=== PATIENT | male | born 1980 | race Caucasian/White ===

== ENCOUNTER 2020-02-22 02:59 | Emergency (ER) | payer SELFPAY ==
[2020-02-22 03:06] VITALS: TEMP 98.6; BMI 29.7
--- NOTE | 2020-02-22 03:07 | PDOC ---
History of Present Illness - General Chief Complaint: Chest Pain Stated Complaint: CHEST PAIN AND BACK PAIN Time Seen by Provider: 02/22/20 03:06 - History of Present Illness Initial Comments: 02/22/20 03:39 This 39-year-old man, previously healthy except for kidney stones, primarily [place]mese-speaking with interpretation by hospital staff presents with several day history of intermittent chest pressure radiating to right or left upper back (periscapular area). Patient describes awakening over the last few days with shortness of breath that was mild and self-limited. Over the last 1 to 2 days, he has had increasing discomfort (substernal chest pressure) which has been worsened with drinking water and improved by drinking chamomile tea. There has been no nausea/vomiting or abdominal discomfort. No fever or chills he denies constipation or diarrhea. No increase in pain with deep breathing, movement or change in position. No previous history of this type of pain. 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 No daily medications No known allergies Denies smoking/daily alcohol or other recreational drug use Past History - Medical History Allergies/Adverse Reactions: Allergies Allergy/AdvReac Type Severity Reaction Status Date / Time No Known Allergies Allergy Verified 02/22/20 03:04 - Psycho-Social/Smoking History Smoking History: Never smoked Have you smoked in the past 12 months: No Information on smoking cessation initiated: No - Substance Abuse Hx (Audit-C & DAST Scrn) How often the patient has a drink containing alcohol: 2-4 times / month Number of drinks the patient has on a typical day: 1 or 2 How often the patient has six or more drinks on one occasion: Less than monthly Score: In Men: 4 or > Positive; In Women: 3 or > Positive: 3 Screen Result (Pos requires Nsg. Audit-10AR): Negative In the last yr the pt used illegal drug/Rx for NonMed reason: No Score: Yes response is considered Positive: 0 Screen Result (Positive result requires Nsg. DAST-10): Negative Review of Systems - Review of Systems Able to Perform ROS?: Yes Comments:: 12 point review of systems is negative except for what is noted in the history of present illness *Physical Exam - Vital Signs Last Vital Signs Temp Pulse Resp BP Pulse Ox 98.6 F 55 L 16 103/73 100 02/22/20 03:00 02/22/20 08:09 02/22/20 08:09 02/22/20 08:09 02/22/20 08:09 - Physical Exam GENERAL: Adult male, alert and oriented x3, no acute distress HEAD: Normal with no signs of trauma. EYES: PERRLA, EOMI, sclera anicteric, conjunctiva clear. ENT: Ears normal, nares patent, oropharynx clear without exudates. Dry mucous membranes. NECK: Normal range of motion, supple without lymphadenopathy, JVD, or masses. LUNGS: Breath sounds equal, clear to auscultation bilaterally. No wheezes, and no crackles. CHEST WALL: Mild tenderness of sternum and bilateral aspects of chest wall; no step-offs or crepitus palpated HEART:Regular rate and rhythm, normal S1 and S2 without murmur, rub or gallop. ABDOMEN:.normal bowel sounds No guarding,tenderness or rebound.No masses No distention. EXTREMITIES: Normal range of motion, no edema. No clubbing or cyanosis. No erythema, or tenderness. NEUROLOGICAL: Cranial nerves II through XII grossly intact. Normal speech. No focal neurological deficits. MUSCULOSKELETAL: Back non-tender to palpation, no CVA tenderness SKIN: Warm, Dry, normal turgor, no rashes or lesions noted. Twelve-lead electrocardiogram performed: Normal sinus rhythm at 67 bpm; waveforms, axis and intervals are normal. No evidence of acute ST or T wave abnormalities. There is sinus arrhythmia but no other cardiac arrhythmia seen. Portable chest x-ray performed: No evidence of acute infiltrate, effusion, mass, vascular abnormality Heart Score/ECG Review - History History: Slightly suspicious - Electrocardiogram EKG: Normal - Age Age: </= 45 - Risk Factors Based on the list above the patient has:: No risk factors known - Troponin Troponin: </= normal limit - Score Heart Score - Total: 0 ED Treatment Course - LABORATORY CBC & Chemistry Diagram: 02/22/20 03:16 02/22/20 03:16 - ADDITIONAL ORDERS Additional order review: Laboratory Results 02/22/20 02/22/20 02/22/20 08:02 03:16 03:16 PT with INR INR PTT (Actin FS) Sodium 137 Potassium 3.7 Chloride 104 Carbon Dioxide 26 Anion Gap 7 L BUN 25.4 H Creatinine 1.0 Est GFR (CKD-EPI)AfAm 108.63 Est GFR (CKD-EPI)NonAf 93.73 Random Glucose 93 Calcium 8.1 L Total Bilirubin 0.6 AST 13 L ALT 18 Alkaline Phosphatase 96 Creatine Kinase 112 Troponin I < 0.03 Cancelled < 0.02 Total Protein 7.0 Albumin 3.9 02/22/20 03:16 PT with INR 13.20 H INR 1.12 H PTT (Actin FS) 32.7 Sodium Potassium Chloride Carbon Dioxide Anion Gap BUN Creatinine Est GFR (CKD-EPI)AfAm Est GFR (CKD-EPI)NonAf Random Glucose Calcium Total Bilirubin AST ALT Alkaline Phosphatase Creatine Kinase Troponin I Total Protein Albumin 02/22/20 03:16 RBC 6.43 H MCV 64.2 L MCHC 31.7 L RDW 15.9 MPV 8.8 Neutrophils % 57.7 Lymphocytes % 29.3 Monocytes % 9.7 Eosinophils % 2.3 Basophils % 1.0 - RADIOLOGY Radiology Studies Ordered: Category Date Time Status CHEST X-RAY PORTABLE* [RAD] Stat Radiology 02/22/20 03:06 Completed - Medications Given in the ED: ED Medications Discontinued Medications Generic Name Dose Route Start Last Admin Trade Name Freq PRN Reason Stop Dose Admin Aspirin 324 mg 02/22/20 03:51 02/22/20 03:53 Asa - PO 02/22/20 03:52 324 mg ONCE ONE Administration Medical Decision Making - Medical Decision Making As noted above, this 39-year-old man with no significant past medical history except for kidney stones presents with few day history of intermittent chest pain radiating to his back which became somewhat more severe over the last day. Pain is triggered by drinking water but also is improved by drinking chamomile tea. patient has no cardiac risk factors. Exam as noted with mild tenderness of the substernal area as well as bilateral chest wall. Otherwise, exam is normal Twelve-lead electrocardiogram without evidence of acute ST or T wave abnormalities Differential diagnosis includes myocardial ischemia , chest wall inflammatory process , esophageal origin pain. CBC, chemistry profile with troponin, INR sent: No elevation of troponin; CBC normal except for hypochromic/microcytic red blood cells. Chemistry profile essentially normal. Plan is for repeat troponin IV hours after first draw (approximately 8 AM) Case signed out to oncoming physician at end of shift Discharge - Discharge Information Problems reviewed: Yes Clinical Impression/Diagnosis: Chest pain Qualifiers: Chest pain type: other chest pain Qualified Code(s): R07.89 - Other chest pain Condition: Stable - Follow up/Referral Referrals: Jules Robbins MD [Staff Physician] - - Patient Discharge Instructions Patient Printed Discharge Instructions: DI for Chest Pain Additional Instructions: you came to the ED for chest pain. Your labs and EKG are normal. You should return to the ED for worsening chest pain or shortness of breath, or other new or changing symptoms. Make sure that you follow up with your PMD within one week. - Post Discharge Activity
[2020-02-22] MEDS ORDERED: ASPIRIN 81 MG CHEWABLE TABLETS ONE (03:43)
[2020-02-22] MEDS ORDERED: ASPIRIN 81 MG CHEWABLE TABLETS PO ONE (03:51)
[2020-02-22 03:55] LABS: EOS % 2.3 % (0-4.5); HEMATOCRIT 41.3 % (35.4-49); HEMOGLOBIN 13.1 GM/dL (11.7-16.9); LYMPH % 29.3 % (8-40); MCH 20.3 pg (25.7-33.7); MCHC 31.7 g/dl (32.0-35.9); MEAN CELL VOLUME 64.2 fl (80-96); MEAN PLT VOLUME 8.8 fl (7.5-11.1); MONO % 9.7 % (3.8-10.2); NEUT % 57.7 % (42.8-82.8); PLATELET COUNT 238 K/MM3 (134-434); RBC 6.43 M/mm3 (4.00-5.60); RDW 15.9 % (11.9-15.9)
[2020-02-22 04:07] LABS: INR 1.12 (0.83-1.09); PROTHROMBIN TIME (PATIENT) 13.2 SEC (9.7-13.0)
[2020-02-22 04:10] LABS: ACTIVATED PTT 32.7 SECONDS (25.2-36.5)
[2020-02-22 04:20] LABS: ALBUMIN 3.9 g/dl (3.4-5.0); ALK PHOS 96 U/L (45-117); ANION GAP 7 MMOL/L (8-16); BILIRUBIN,TOTAL 0.6 mg/dL (0.2-1); BLOOD UREA NITROGEN 25.4 mg/dL (7-18); CALCIUM 8.1 mg/dL (8.5-10.1); CHLORIDE 104 mmol/L (98-107); CO2 26 mmol/L (21-32); GLUCOSE,RANDOM 93 mg/dL (74-106); POTASSIUM 3.7 mmol/L (3.5-5.1); SGOT/AST 13 U/L (15-37); SGPT/ALT 18 U/L (13-61); SODIUM 137 mmol/L (136-145)
[2020-02-22 04:36] LABS: ANISOCYTOSIS 2+; MACROCYTOSIS 1+; PLATELET ESTIMATE ADEQUATE
[2020-02-22 08:09] VITALS: BP 103/73; PULSE 55
--- NOTE | 2020-02-22 08:56 | PDOC ---
*Physical Exam - Vital Signs Last Vital Signs Temp Pulse Resp BP Pulse Ox 98.6 F 55 L 16 103/73 100 02/22/20 03:00 02/22/20 08:09 02/22/20 08:09 02/22/20 08:09 02/22/20 08:09 ED Treatment Course - LABORATORY CBC & Chemistry Diagram: 02/22/20 03:16 02/22/20 03:16 - ADDITIONAL ORDERS Additional order review: Laboratory Results 02/22/20 02/22/20 02/22/20 08:02 03:16 03:16 PT with INR INR PTT (Actin FS) Sodium 137 Potassium 3.7 Chloride 104 Carbon Dioxide 26 Anion Gap 7 L BUN 25.4 H Creatinine 1.0 Est GFR (CKD-EPI)AfAm 108.63 Est GFR (CKD-EPI)NonAf 93.73 Random Glucose 93 Calcium 8.1 L Total Bilirubin 0.6 AST 13 L ALT 18 Alkaline Phosphatase 96 Creatine Kinase 112 Troponin I < 0.03 Cancelled < 0.02 Total Protein 7.0 Albumin 3.9 02/22/20 03:16 PT with INR 13.20 H INR 1.12 H PTT (Actin FS) 32.7 Sodium Potassium Chloride Carbon Dioxide Anion Gap BUN Creatinine Est GFR (CKD-EPI)AfAm Est GFR (CKD-EPI)NonAf Random Glucose Calcium Total Bilirubin AST ALT Alkaline Phosphatase Creatine Kinase Troponin I Total Protein Albumin 02/22/20 03:16 RBC 6.43 H MCV 64.2 L MCHC 31.7 L RDW 15.9 MPV 8.8 Neutrophils % 57.7 Lymphocytes % 29.3 Monocytes % 9.7 Eosinophils % 2.3 Basophils % 1.0 - Medications Given in the ED: ED Medications Discontinued Medications Generic Name Dose Route Start Last Admin Trade Name Freq PRN Reason Stop Dose Admin Aspirin 324 mg 02/22/20 03:51 02/22/20 03:53 Asa - PO 02/22/20 03:52 324 mg ONCE ONE Administration Medical Decision Making - Medical Decision Making 02/22/20 08:52 Pt presents to the ED complaining of chest pain. now is chest pain free. second set of troponins and EKG within normal limits. Will discharge home with instructions to return to the ED for worsening symptoms. Discharge - Discharge Information Problems reviewed: Yes Clinical Impression/Diagnosis: Chest pain Qualifiers: Chest pain type: other chest pain Qualified Code(s): R07.89 - Other chest pain Condition: Stable - Admission No - Follow up/Referral Referrals: Jules Robbins MD [Staff Physician] - - Patient Discharge Instructions Patient Printed Discharge Instructions: DI for Chest Pain Additional Instructions: you came to the ED for chest pain. Your labs and EKG are normal. You should return to the ED for worsening chest pain or shortness of breath, or other new or changing symptoms. Make sure that you follow up with your PMD within one week. - Post Discharge Activity
--- NOTE | 2020-02-22 12:06 | EKG ---
Test Reason : Blood Pressure : / mmHG Vent. Rate : 067 BPM Atrial Rate : 067 BPM P-R Int : 160 ms QRS Dur : 112 ms QT Int : 382 ms P-R-T Axes : 061 078 049 degrees QTc Int : 403 ms NORMAL SINUS RHYTHM WITH SINUS ARRHYTHMIA NORMAL ECG NO PREVIOUS ECGS AVAILABLE Confirmed by MD Pablo, Gerson ([id number]) on 02/22/2020 12:05:36 PM Referred By: LUC PERALTA Confirmed By:Gerson Shah MD
== END 2020-02-22 09:26 ==
LOC: FER 02:59
DX: R07.89 Other chest pain (principal)
CPT/HCPCS: 36415; 71045-TC-FY; 80053; 82550; 84484; 85025; 85610; 85730; 93005; 99285-25